=== PATIENT | male | born 1945 | race Caucasian/White ===

== ENCOUNTER → 2016-11-22 | Outpatient (CLI) | payer OTHER ==
[~2016-11-22] MED LIST: ACTOS PO; ALEVE 220 MG; AMARYL PO; ASPIRIN PO; COUMADIN PO; FISH OIL 1,0001 CAP PO; FISH OIL PO; HYDROCODONE-APA1 T30 PO; JANUVIA PO; LISINOPRIL PO; MAGNESIUM 250 MG; METFORMIN ER PO; METFORMIN PO; NORCO 5/325 TAB1 TAB PO; TYLOX 5/500 CAP1 CAP PO; VICODIN 5/500 T1 TAB PO; ZETIA PO
--- NOTE | ~2016-11-22 | BD1 ---
[facility] A Service of [facility] RADIOLOGY TEXT RESULTS PATIENT: JHONATAN SOTO LOCATION: [facility] : 43 UNIT #: [id number] AGE: [address]: Ag Tierney MD SEX: M ORDER DR: [id number] [facility] [address] [place], [place] [address] [id number] O MR#: [id number] Acc #: [id number] NAME: JHONATAN SOTO : 1945 SEX: M STUDY DATE/TIME: 11/22/2016 10:38 UNIT: [facility] ROOM: STUDY DESCRIPTION: BD Dexa Bone Dens 1+ Site Attending Physician: Ag Tierney M.D. Referring Physician: Ag Tierney M.D. Ordering Physician: Ag Tierney M.D. Primary Care Physician: Ag Tierney M.D. MEDICAL IMAGING REPORT This report is preliminary unless electronic signature is present EXAM DXA scan 11/22/2016 HISTORY Osteoarthritis, osteopenia. Diabetes. Hypertension with blood pressure medication for 10 years. Smoking history. FINDINGS Bone mineral density in the lumbar spine from L1-L4 is 1.136 g/cm2 which is 0.4 standard deviations above the mean when compared to the young adult reference population which is within the range of normal. This is 1.4 standard deviations above the mean when compared to the age-matched population. Bone mineral density in the left femoral neck was 1.075 g/cm2 which is 0.3 standard deviations above the mean when compared to the young adult reference population which is within the range of normal. This is 1 standard deviation above the mean when compared to the age-matched population. IMPRESSION Bone mineral density in the lumbar spine and the left hip within the range of normal. Dictated by... David Gloria M.D. THIS IS AN ELECTRONICALLY VERIFIED REPORT David Gloria M.D. at 11/22/2016 5:34 PM MICHEL/fortino TD: 11/22/2016 13:30 JOB #: [id number] [facility] A Service of [facility] RADIOLOGY TEXT RESULTS PATIENT: JHONATAN SOTO LOCATION: [facility] #: [id number] : 43 UNIT #: [id number] AGE: [address]: Ag Tierney MD SEX: M ORDER DR: MEDICAL IMAGING REPORT Page 1 of 1 COPY
== END | disposition home or self-care (01) ==
LOC: CWCC 10:09
DX: Z13.820 Encounter for screening for osteoporosis (principal); M19.90 Unspecified osteoarthritis, unspecified site; E11.65 Type 2 diabetes mellitus with hyperglycemia; I50.30 Unspecified diastolic (congestive) heart failure; E29.1 Testicular hypofunction; Z88.8 Allergy status to other drugs, medicaments and biological substances
CPT/HCPCS: 77080